=== PATIENT | female | born 1965 | race Caucasian/White ===

== ENCOUNTER → 2017-03-21 | Outpatient (CLI) | payer OTHER ==
[~2017-03-21] MED LIST: ASPI325T PO; ATARAX OR; BUSP5TA PO; CITA20TA4 PO; DOXE75CA OR; FLUO20CA9 PO; HYDR100T PO; HYDR10T PO; HYDR25T PO; LITH150C PO; PERCOCET PO; SERO200T OR; TRAZ100T4 PO; TYLE325T5 PO; VIST50CA PO; WELL100T OR; ZOLO100T OR; ZOLO100T PO; ZOLO50TA OR
[2017-03-21 19:48] LABS: ANION GAP 9 MEQ/L (8-16); BLOOD UREA NITROGEN 10 MG/DL (7-18); CALCIUM LEVEL 8.7 MG/DL (8.5-10.1); CARBON DIOXIDE LEVEL 29 MEQ/L (21-32); CHLORIDE LEVEL 102 MEQ/L (98-107); CHOLESTEROL LEVEL 199 MG/DL (<200); CREATININE FOR GFR 0.69 MG/DL (0.55-1.02); GLOMERULAR FILTRATION RATE > 60.0 (>51); GLUCOSE, FASTING 82 MG/DL (70-105); POTASSIUM SERUM 4.3 MEQ/L (3.5-5.1); SODIUM LEVEL 140 MEQ/L (136-145); TRIGLYCERIDES LEVEL 107 MG/DL (<150)
== END ==
LOC: M WUC 15:50
PROVIDERS: ATTEND Student in an Organized Health Care Education/Training Program
DX: F31.30 Bipolar disorder, current episode depressed, mild or moderate severity, unspecified (principal); Z13.220 Encounter for screening for lipoid disorders

== ENCOUNTER → 2017-04-29 | Outpatient (REF) | payer OTHER ==
[~2017-04-29] MED LIST changes: +CLON0.5T PO; +LATU20TA PO; +SERO1TAB3 PO
== END ==
LOC: M SFHCPLAZ 14:39
PROVIDERS: ATTEND Family Medicine
DX: F41.9 Anxiety disorder, unspecified (principal)

== ENCOUNTER 2017-05-09 21:39 | Emergency (ER) | payer MEDICAID, OTHER ==
[~2017-05-09] VITALS: Ht 157.5 cm; Wt 75.3 kg
[~2017-05-09 21:39] MED LIST changes: -CLON0.5T PO; +FLUO20CA19 PO; -FLUO20CA9 PO; +HYDR-3363 PO; +HYDR-643 PO; -HYDR10T PO; -HYDR25T PO; -LATU20TA PO; -SERO1TAB3 PO; +TRAZ-136 PO; -TRAZ100T4 PO
[2017-05-09 21:40] VITALS: BP 121/70
[2017-05-09] MEDS ORDERED: LATU20TA PO (22:11)
[2017-05-09] MEDS ORDERED: CLON0.5T PO (22:11)
[2017-05-09] MEDS ORDERED: SERO1TAB3 PO (22:11)
== END 2017-05-09 23:27 | disposition home or self-care (01) ==
LOC: M ED 22:59
DX: S91.201A Unspecified open wound of right great toe with damage to nail, initial encounter (principal); W22.8XXA Striking against or struck by other objects, initial encounter; Y92.019 Unspecified place in single-family (private) house as the place of occurrence of the external cause; Y93.89 Activity, other specified; Y99.8 Other external cause status; F43.10 Post-traumatic stress disorder, unspecified; Z87.891 Personal history of nicotine dependence; Z79.899 Other long term (current) drug therapy; Z88.1 Allergy status to other antibiotic agents

== ENCOUNTER → 2017-08-08 | Outpatient (CLI) | payer MEDICAID, OTHER ==
[~2017-08-08] MED LIST changes: +BENT20TA PO; +CLON0.5T PO; +LATU20TA PO; +PRAZ1CAP PO; +SERO1TAB3 PO; +TRIL1TAB PO
--- NOTE | 2017-08-08 16:06 | REPMRS ---
Patient History The patient states she had a clinical breast exam in July 2017.No known family history of cancer. Taking hormonal contraceptives for 1 month. Digital Mammo Screening Bilat: August 08, 2017 - Exam #: [id number] Bilateral CC and MLO view(s) were taken. Technologist: Nayana Duque, Technologist Prior study comparison: August 07, 2016, bilateral digital mammo screening bilat performed at [facility]. June 29, 2013, bilateral digital mammo screening bilat performed at [facility]. FINDINGS: The breast tissue is extremely dense which could obscure a lesion on mammography. There is no evidence of cancer on this mammogram. No significant changes when compared with prior studies. ASSESSMENT: BI-RADS/ACR category 2 mammogram. Benign finding(s). Recommendation Routine screening mammogram of both breasts in 1 year (for women over age 40). This mammogram was interpreted with the aid of an FDA-approved computer-aided dectection system. Electronically Signed By: Guy Cleveland MD 08/08/17 [id number]
== END ==
LOC: M RAD 13:39
PROVIDERS: ATTEND Physician Assistant
DX: Z12.31 Encounter for screening mammogram for malignant neoplasm of breast (principal)

== ENCOUNTER → 2017-08-22 | Outpatient (CLI) | payer MEDICAID | LOC: M OUTALCOH 08:02 | PROVIDERS: ATTEND Psychiatry & Neurology Psychiatry | DX: F10.20 Alcohol dependence, uncomplicated (principal); F12.20 Cannabis dependence, uncomplicated ==

== ENCOUNTER → 2017-09-26 | Outpatient (CLI) | payer OTHER, MEDICAID ==
[2017-09-26 11:48] LABS: BASO # 0.1 10^3/uL (0.0-0.2); BASO % 0.9 % (0.0-1.0); EOS # 0.4 10^3/uL (0.0-0.50); EOS % 5.7 % (0.0-3.0); IMMATURE GRANULOCYTE % 0.4 % (0-0); LYMPH # 2.8 10^3/uL (1.5-4.5); LYMPH % 41.3 % (24.0-44.0); MEAN CORPUSCULAR HEMOGLOBIN 27.9 pg (27.0-33.0); MEAN CORPUSCULAR HGB CONC 31.2 g/dl (32.0-36.5); MEAN CORPUSCULAR VOLUME 89.5 fl (80.0-96.0); MONO # 0.5 10^3/uL (0.0-0.8); MONO % 7.2 % (0.0-5.0); NEUTROPHILS % 44.5 % (36.0-66.0); PLATELET COUNT, AUTOMATED 406 10^3/uL (150-450); RED CELL DISTRIBUTION WIDTH 14.5 % (11.5-14.5); WHITE BLOOD COUNT 6.7 10^3/uL (4.0-10.0)
[2017-09-26 12:01] LABS: INR 1.02
[2017-09-26 12:10] LABS: ALBUMIN 3.4 GM/DL (3.2-5.2); ALKALINE PHOSPHATASE 58 U/L (45-117); ALT/SGPT 20 U/L (12-78); ANION GAP 6 MEQ/L (8-16); AST/SGOT 12 U/L (7-37); BILIRUBIN,TOTAL 0.3 MG/DL (0.2-1.0); BLOOD UREA NITROGEN 11 MG/DL (7-18); CALCIUM LEVEL 8.9 MG/DL (8.5-10.1); CARBON DIOXIDE LEVEL 28 MEQ/L (21-32); CHLORIDE LEVEL 106 MEQ/L (98-107); CREATININE FOR GFR 0.65 MG/DL (0.55-1.02); GLOMERULAR FILTRATION RATE > 60.0 (>51); GLUCOSE, FASTING 136 MG/DL (70-105); SODIUM LEVEL 140 MEQ/L (136-145); TOTAL PROTEIN 6.8 GM/DL (6.4-8.2)
[2017-09-26 12:48] LABS: POTASSIUM SERUM 5.2 MEQ/L (3.5-5.1)
== END ==
LOC: M WUC 10:59
PROVIDERS: ATTEND Student in an Organized Health Care Education/Training Program
DX: R10.13 Epigastric pain (principal)

== ENCOUNTER 2017-09-30 16:30 | Emergency (ER) | payer MEDICAID, OTHER ==
[~2017-09-30] VITALS: Ht 157.5 cm; Wt 75.0 kg
[~2017-09-30 16:30] MED LIST changes: -BENT20TA PO; -PRAZ1CAP PO; -TRIL1TAB PO
[2017-09-30] MEDS ORDERED: TRIL1TAB PO (16:41)
[2017-09-30] MEDS ORDERED: PRAZ1CAP PO (16:41)
[2017-09-30] MEDS ORDERED: NS 1,000 ML IV SCH (17:14)
[2017-09-30] MEDS ORDERED: ONDANSETRON 4MG/2ML VIAL (J2405) IV ONE (17:15)
[2017-09-30] MEDS: MORPHINE 2 MG/ML 1ML SYRINGE IV PRN ×3 (17:55→19:04)
[2017-09-30 18:02] LABS: BASO # 0.1 10^3/uL (0.0-0.2); BASO % 0.9 % (0.0-1.0); EOS # 0.3 10^3/uL (0.0-0.50); IMMATURE GRANULOCYTE % 0.5 % (0-0); LYMPH # 2.9 10^3/uL (1.5-4.5); LYMPH % 38.7 % (24.0-44.0); MEAN CORPUSCULAR HEMOGLOBIN 27.8 pg (27.0-33.0); MEAN CORPUSCULAR HGB CONC 31.4 g/dl (32.0-36.5); MEAN CORPUSCULAR VOLUME 88.5 fl (80.0-96.0); MONO # 0.6 10^3/uL (0.0-0.8); NEUTROPHILS # 3.6 10^3/uL (1.8-7.7); NEUTROPHILS % 47.9 % (36.0-66.0); PLATELET COUNT, AUTOMATED 389 10^3/uL (150-450); RED CELL DISTRIBUTION WIDTH 14.1 % (11.5-14.5); WHITE BLOOD COUNT 7.5 10^3/uL (4.0-10.0)
[2017-09-30 18:26] LABS: ALBUMIN 3.5 GM/DL (3.2-5.2); ALBUMIN/GLOBULIN RATIO 0.92 (1.00-1.93); ALKALINE PHOSPHATASE 62 U/L (45-117); ALT/SGPT 23 U/L (12-78); ANION GAP 6 MEQ/L (8-16); AST/SGOT 12 U/L (7-37); BILIRUBIN,DIRECT < 0.1 MG/DL (0.0-0.2); BILIRUBIN,TOTAL 0.2 MG/DL (0.2-1.0); BLOOD UREA NITROGEN 8 MG/DL (7-18); CALCIUM LEVEL 8.7 MG/DL (8.5-10.1); CARBON DIOXIDE LEVEL 28 MEQ/L (21-32); CHLORIDE LEVEL 105 MEQ/L (98-107); CREATININE FOR GFR 0.73 MG/DL (0.55-1.02); GLOMERULAR FILTRATION RATE > 60.0 (>51); GLUCOSE, FASTING 86 MG/DL (70-105); POTASSIUM SERUM 4.1 MEQ/L (3.5-5.1); SODIUM LEVEL 139 MEQ/L (136-145); TOTAL PROTEIN 7.3 GM/DL (6.4-8.2)
--- NOTE | 2017-09-30 18:43 | REP ---
AP PORTABLE CHEST: 09/30/2017. Clinical history: Chest pain. Comparison: 05/05/2015, 06/08/2014. Findings: Lungs are marginally adequate in the degree of inflation. There is no effusion or lateral pleural thickening. No dense consolidation or parenchymal mass. Heart is not enlarged. There is no vascular redistribution or edema. The aorta is mildly tortuous, but normal for age. Airway is intact. Bones show no acute finding. There is no free air under the diaphragm. Impression: 1. No acute cardiopulmonary change. Signed by Tayo Sigala MD 09/30/2017 08:03 P
[2017-09-30] MEDS ORDERED: ISOVUE-370 76% 100ML VIAL (Q9967) As Ordered ONE (19:02)
[2017-09-30] MEDS ORDERED: BENT20TA PO (21:07)
[2017-09-30] MEDS ORDERED: DICYCLOMINE 10 MG CAP PO ONE (21:15)
[2017-09-30 21:42] VITALS: BP 90/58
--- NOTE | 2017-10-01 11:14 | REP ---
Clinical: Dyspnea. Shortness of breath. Rule out PE. Technique: Axial contrast enhanced images from the thoracic inlet to the upper abdomen using 100 ml Isovue 370 intravenous contrast material with multiplanar MIP re-formations. Findings: No obvious pulmonary embolus is appreciated. Thoracic aorta is without aneurysm or dissection. No significant atherosclerotic changes are identified. The bilateral lung dee are well-aerated and without focal consolidation, significant nodule or mass lesion. No pleural effusion or pneumothorax. Tracheobronchial tree is patent. No axillary, hilar, or mediastinal adenopathy. A moderate paraesophageal gastric hiatal hernia is identified. Surrounding musculoskeletal structures are intact. Impression: 1. No evidence for pulmonary embolus. Normal thoracic aorta. 2. No obvious acute mediastinal or pleuroparenchymal process. 3. Moderate paraesophageal gastric hiatal hernia. Signed by Onesimo Jimenez MD 10/01/2017 11:06 A
--- NOTE | 2017-10-01 12:00 | REP ---
Clinical: Chest and abdominal pain. Technique: Axial contrast enhanced images from the lung bases to the pubic symphysis using 100 ml Isovue 370 intravenous contrast material with coronal and sagittal re-formations. Findings: Lung bases demonstrate minimal dependent and fibroatelectatic changes. Visualized portions of the heart and pericardium are normal. Moderate paraesophageal gastric hiatal hernia noted. Liver includes 2.1 cm hypodensity in the posterior segment right lobe which likely reflect cyst. Spleen, pancreas, gallbladder, bilateral adrenal glands and kidneys are normal. The small and large bowel is without obstruction or acute inflammatory process. Scattered sigmoid diverticula noted without acute diverticulitis. Pelvis demonstrates normal bladder. The uterus is heterogeneous and enlarged likely representing underlying myomatous changes. No pelvic fluid or ascites. No adenopathy. No obvious mass lesion. Small fat containing periumbilical and supraumbilical midline ventral hernias are identified. Surrounding musculoskeletal structures demonstrate age-related changes without focal osseous abnormality. Impression: 1. Moderate paraesophageal gastric hiatal hernia. 2. 2.1 cm hepatic hypodensity likely representing cyst. Liver ultrasound may be warranted for further investigation and corroboration. 3. Scattered sigmoid diverticula without acute diverticulitis. 4. Enlarged heterogeneous uterus suggesting underlying myomatous changes may be evaluated by pelvic ultrasound if necessary. 5. No acute abdominopelvic pathology appreciated. No free fluid. No adenopathy. No obvious mass. Signed by Onesimo Jimenez MD 10/01/2017 11:50 A
--- NOTE | 2017-10-02 14:05 | ED PDOC ---
Post-Departure Follow-Up radiology reoprt [facility]lma [facility] MD Oct 02, 2017 14:05
--- NOTE | 2017-10-02 14:07 | ECGEPIP ---
Stationary ECG Study [facility] - ED Test Date: 2017-09-30 Pat Name: JJ FRANCISCO Department: Room: - Gender: F Booking Manager: : 1965 Requested By: Saran Moise Order Number: [id number] Reading MD: Hailee Garcia Measurements Intervals [place] Rate: 78 P: 53 VT: 127 QRS: 39 QRSD: 113 T: 48 QT: 381 QTc: 434 Interpretive Statements SINUS RHYTHM MODERATE INTRAVENTRICULAR CONDUCTION DELAY INCREASED RATE 03/03/16 Electronically Signed On 10-02-2017 14:07:09 EST by Hailee Garcia
== END 2017-09-30 21:58 | disposition home or self-care (01) ==
LOC: M ED 16:30
DX: R10.9 Unspecified abdominal pain (principal); F41.9 Anxiety disorder, unspecified; F33.9 Major depressive disorder, recurrent, unspecified; F43.10 Post-traumatic stress disorder, unspecified; Z79.899 Other long term (current) drug therapy; Z88.1 Allergy status to other antibiotic agents; Z98.890 Other specified postprocedural states; Z87.891 Personal history of nicotine dependence
CPT/HCPCS: 71010; 71275; 74177; 80048; 80076; 82550; 82553; 83605; 83690; 85025; 93000; 93041; 94760; 96374; 96375; 96376; 99285; J2405; Q9967

== ENCOUNTER 2017-10-16 08:45 | Outpatient (RCR) | payer MEDICAID ==
[~2017-10-16 08:45] MED LIST changes: +BENT20TA PO; +PRAZ1CAP PO; +TRIL1TAB PO
== END 2017-10-17 ==
LOC: M OUTALCOH 08:45
PROVIDERS: ATTEND Psychiatry & Neurology Psychiatry
DX: F10.20 Alcohol dependence, uncomplicated (principal); F14.20 Cocaine dependence, uncomplicated; F12.20 Cannabis dependence, uncomplicated

== ENCOUNTER 2017-10-18 10:38 | Outpatient (RCR) | payer MEDICAID | END 2017-11-17 | LOC: M OUTALCOH 10:38 | DX: F10.20 Alcohol dependence, uncomplicated (principal); F14.20 Cocaine dependence, uncomplicated; F12.20 Cannabis dependence, uncomplicated ==

== ENCOUNTER 2017-11-20 11:15 | Outpatient (RCR) | payer MEDICAID | END 2017-12-18 | LOC: M OUTALCOH 11:15 | DX: F10.20 Alcohol dependence, uncomplicated (principal); F14.20 Cocaine dependence, uncomplicated; F12.20 Cannabis dependence, uncomplicated ==

== ENCOUNTER 2017-12-10 12:35 | Emergency (ER) | payer OTHER, MEDICAID | END 2017-12-10 15:49 | disposition home or self-care (01) | LOC: M ED 12:35 | DX: R05 Cough (principal); J01.90 Acute sinusitis, unspecified; J30.9 Allergic rhinitis, unspecified; Z87.891 Personal history of nicotine dependence | CPT/HCPCS: 87804 ==

== ENCOUNTER 2017-12-19 16:00 | Outpatient (RCR) | payer OTHER | END 2018-01-15 | LOC: M OUTALCOH 16:00 | DX: F10.20 Alcohol dependence, uncomplicated (principal); F14.20 Cocaine dependence, uncomplicated; F12.20 Cannabis dependence, uncomplicated ==

== ENCOUNTER → 2017-12-31 | Outpatient (CLI) | payer OTHER | LOC: M SMT 14:25 | DX: R10.2 Pelvic and perineal pain (principal) | CPT/HCPCS: 76830 ==

== ENCOUNTER 2018-01-27 10:22 | Outpatient (RCR) | payer MEDICAID | END 2018-02-15 | LOC: M OUTALCOH 02-10 15:00 | DX: F10.20 Alcohol dependence, uncomplicated (principal); F14.20 Cocaine dependence, uncomplicated; F12.20 Cannabis dependence, uncomplicated ==

== ENCOUNTER 2018-02-24 09:34 | Outpatient (RCR) | payer MEDICAID | END 2018-03-17 | LOC: M OUTALCOH 03-03 14:00 | DX: F10.20 Alcohol dependence, uncomplicated (principal); F14.20 Cocaine dependence, uncomplicated; F12.20 Cannabis dependence, uncomplicated ==

== ENCOUNTER 2018-04-09 13:12 | Outpatient (RCR) | payer MEDICAID | END 2018-04-17 | LOC: M OUTALCOH 13:12 | DX: F10.20 Alcohol dependence, uncomplicated (principal); F14.20 Cocaine dependence, uncomplicated; F12.20 Cannabis dependence, uncomplicated ==

== ENCOUNTER 2018-04-23 15:27 | Outpatient (RCR) | payer MEDICAID | END 2018-05-17 | LOC: M OUTALCOH 05-15 14:45 | DX: F10.20 Alcohol dependence, uncomplicated (principal); F14.20 Cocaine dependence, uncomplicated; F12.20 Cannabis dependence, uncomplicated ==

== ENCOUNTER 2018-05-26 10:13 | Outpatient (RCR) | payer MEDICAID | END 2018-06-17 | LOC: M OUTALCOH 06-02 08:00 | DX: F10.20 Alcohol dependence, uncomplicated (principal); F14.20 Cocaine dependence, uncomplicated; F12.20 Cannabis dependence, uncomplicated ==

== ENCOUNTER 2018-08-11 14:55 | Outpatient (RCR) | payer MEDICAID | END 2018-08-17 | LOC: M OUTALCOH 14:55 | DX: F10.20 Alcohol dependence, uncomplicated (principal); F14.20 Cocaine dependence, uncomplicated; F12.20 Cannabis dependence, uncomplicated ==